=== PATIENT | female | born 1945 | race Caucasian/White ===

== ENCOUNTER 2016-08-17 09:11 | Emergency (ER) | payer MEDICARE, OTHER ==
[~2016-08-17] VITALS: Ht 167.6 cm; Wt 66.7 kg
[2016-08-17] MEDS ORDERED: PULMICORT0.25 MG/2 INH (10:18)
[2016-08-17] MEDS ORDERED: SYNTHROID88 MCG PO (10:19)
[2016-08-17] MEDS ORDERED: LOPRESSOR50 MG PO (10:19)
[2016-08-17] MEDS ORDERED: PERFOROMIS20 MCG/2 M INH (10:20)
[2016-08-17] MEDS ORDERED: SPIRIVA RESPIMAT4 GM INH (10:23)
[2016-08-17] MEDS ORDERED: ULTRAM50 MG PO (10:24)
[2016-08-17] MEDS ORDERED: VITAMIN D31000 UNI1 PO (10:26)
[2016-08-17] MEDS ORDERED: VENTOLIN HFA18 GM INH (10:26)
[2016-08-17] MEDS ORDERED: AMBIEN10 MG PO (10:27)
== END 2016-08-17 12:30 | disposition short-term general hospital (02) ==
LOC: ER 09:11
DX: J44.1 Chronic obstructive pulmonary disease with (acute) exacerbation (principal); I10 Essential (primary) hypertension; E03.9 Hypothyroidism, unspecified; G47.00 Insomnia, unspecified; Z90.49 Acquired absence of other specified parts of digestive tract; Z98.890 Other specified postprocedural states; Z88.8 Allergy status to other drugs, medicaments and biological substances; Z87.891 Personal history of nicotine dependence
CPT/HCPCS: J2930